=== PATIENT | male | born 1980 | race Caucasian/White ===

== ENCOUNTER 2016-09-13 16:51 | Emergency (ER) | payer OTHER | END 2016-09-13 18:44 | disposition home or self-care (01) | LOC: FER 16:51 | DX: S46.911A Strain of unspecified muscle, fascia and tendon at shoulder and upper arm level, right arm, initial encounter (principal); S80.812A Abrasion, left lower leg, initial encounter; I10 Essential (primary) hypertension; Z23 Encounter for immunization; Z79.899 Other long term (current) drug therapy; W10.9XXA Fall (on) (from) unspecified stairs and steps, initial encounter | CPT/HCPCS: 73030; 73610; 90471; 90715 ==

== ENCOUNTER 2021-09-03 19:04 | Emergency (ER) | payer OTHER ==
[~2021-09-03 19:04] MED LIST: AUGMENTIN 875-1 EACH PO; CLEOCIN300 MG PO; IBUPROFEN800 MG PO; NORCO 5-325 TA1 EACH PO; PERCOCET 5-3251 EACH PO
[2021-09-03] MEDS ORDERED: PERCOCET 5-3251 EACH PO (20:02)
== END 2021-09-03 20:45 | disposition home or self-care (01) ==
LOC: FER 19:04
DX: K04.7 Periapical abscess without sinus (principal); I10 Essential (primary) hypertension; E03.9 Hypothyroidism, unspecified; Z79.890 Hormone replacement therapy; Z79.899 Other long term (current) drug therapy
CPT/HCPCS: 99282; J1885

== ENCOUNTER 2021-09-04 19:18 | Emergency (ER) | payer OTHER ==
[2021-09-04 21:20] LABS: BASOPHIL 0.3 % (0-2); EOSINOPHIL 0.7 % (0-5); HCT 51.2 % (42.0-52.0); HGB 17.4 g/dl (13.2-18.0); LYMPHOCYTE 17.6 % (15-48); MCV 94.3 fL (78.0-100.0); MONOCYTE 12.2 % (0-12); NEUTROPHIL 68.9 % (41-80); NRBC 0; PLT 227 K/uL (150-400); RBC 5.43 M/uL (4.70-6.00); RDW 12.1 % (11.5-14.0); WBC 11.5 K/uL (4.0-10.5)
[2021-09-04 21:35] LABS: CREATININE 0.9 mg/dL (0.67-1.17); POTASSIUM 3.4 mmol/L (3.5-5.1)
== END 2021-09-05 00:05 | disposition home or self-care (01) ==
LOC: FER 19:18
PROVIDERS: Nurse Practitioner Family
DX: K04.7 Periapical abscess without sinus (principal); I10 Essential (primary) hypertension; Z79.899 Other long term (current) drug therapy
CPT/HCPCS: 36415; 80048; 85025; J0696; J1885; J2270; J7030; Q0163